=== PATIENT | male | born 1970 | race Caucasian/White ===

== ENCOUNTER 2018-04-22 18:00 | Inpatient (IN) | payer BC, OTHER ==
[~2018-04-22] VITALS: Ht 170.2 cm; Wt 117.5 kg
[~2018-04-22 18:00] MED LIST: BENA20TA4 PO; METO50TA6 PO; PRAV20TA2 PO
[2018-04-22] MEDS ORDERED: DEXAMETHASONE SOD PHOS 20 MG/5 ML VIAL. IV ONE (18:45)
[2018-04-22] MEDS ORDERED: IV NORMAL SALINE 1000ML BAG 1,000 ML IV ONE (18:45)
[2018-04-22 18:51] LABS: BILIRUBIN,URINE NEGATIVE (NEG); CLARITY,URINE CLEAR; COLOR,URINE YELLOW; NITRITE,URINE NEGATIVE (NEG); PROTEIN,URINE NEGATIVE (NEG-TRACE)
[2018-04-22 19:00] LABS: BARBITURATES NEG (NEG); BENZODIAZEPINES NEG (NEG); CANNABINOIDS NEG (NEG); COCAINE NEG (NEG); METHADONE NEG (NEG); OPIATES NEG (NEG); PHENCYCLIDINE NEG (NEG)
[2018-04-22 19:01] LABS: AMPHETAMINE/METHAMPHETAMINE NEG (NEG)
[2018-04-22 19:06] LABS: BACTERIA,URINE FEW /HPF (0-FEW); RBC,URINE OCC /HPF (0-2); SQUAMOUS EPITHELIAL CELL,UR OCC /LPF
--- NOTE | 2018-04-22 19:32 | RAD ---
CT head and cervical spine without contrast History: fall, hit head, left-sided neck pain, headache and confusion Technique: Noncontrast CT imaging was performed of the head and cervical spine. Multiplanar reconstruction images are submitted. Exposure: One or more of the following individualized dose reduction techniques were utilized for this examination: 1. Automated exposure control 2. Adjustment of the mA and/or kV according to patient size 3. Use of iterative reconstruction technique. Head CT Comparison: None Findings: No acute extra-axial or parenchymal hemorrhage is identified. There is no significant intra-axial mass effect, midline shift, or extra-axial fluid collection. The nazario-white differentiation of the major vascular territories is preserved. The ventricles, sulci, and cisterns are within normal limits in size and configuration. The mastoid air cells and the visualized paranasal sinuses are aerated. There is no significant focal calvarial abnormality. Impression: 1. No convincing acute intracranial abnormality is identified. Cervical spine CT Comparison: None Findings: No acute cervical spine fracture is identified. Vertebral body stature and AP alignment are within normal limits. Atlanto-axial distance is within normal limits. There is appropriate alignment of lateral masses of C1 relative to C2. Occipital condylar-C1 relationship is maintained. There is moderate degenerative disc disease C5-6. There is straightening of cervical spine, very mild reversal of the lordotic curvature centered near C4-5. There is spondylosis C4-5 and C5-6. Impression: 1. No acute cervical spine fracture is identified. 2. There is moderate degenerative disc disease C5-6. Electronically signed by: Henry Torre MD (04/22/2018 7:29 PM) [facility]
[2018-04-22 19:34] LABS: BASO % 1 % (0-3); EOS % 0 % (0-3); HEMATOCRIT 42.9 % (39.0-53.0); HEMOGLOBIN 14.3 g/dL (13.0-17.5); LYMPH # 1.7 x10^3/uL (1.0-4.8); LYMPH % 31 % (24-48); MEAN CORPUSCULAR HEMOGLOBIN 29 pg (25-35); MEAN CORPUSCULAR HGB CONC 33 g/dL (31-37); MEAN CORPUSCULAR VOLUME 88 fL (79-100); MONO # 0.3 x10^3/uL (0.0-1.1); MONO % 6 % (0-9); NEUT # 3.5 x10^3uL (1.8-7.7); NEUT % 63 % (31-73); PLATELET COUNT 234 x10^3/uL (140-400); RED BLOOD COUNT 4.89 x10^6/uL (4.30-5.70); RED CELL DISTRIBUTION WIDTH 13.2 % (11.5-14.5); WHITE BLOOD COUNT 5.5 x10^3/uL (4.0-11.0)
[2018-04-22 19:43] LABS: PROTHROMBIN TIME PATIENT 14.1 SEC (11.7-14.0)
--- NOTE | 2018-04-22 19:43 | EKG ---
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
[2018-04-22 19:46] LABS: CREATININE 1.2 mg/dL (0.7-1.3); GFR 64.1; POTASSIUM 4.3 mmol/L (3.5-5.1)
[2018-04-22 19:55] LABS: ALBUMIN 3.7 g/dL (3.4-5.0); ALBUMIN/GLOBULIN RATIO 0.9 (1.0-1.7); MAGNESIUM 2.4 mg/dL (1.8-2.4); TOTAL BILIRUBIN 0.7 mg/dL (0.2-1.0); TOTAL PROTEIN 7.8 g/dL (6.4-8.2)
[2018-04-22] MEDS ORDERED: MULTIVIT INFUSN,ADULT 4,VIT K 10 ML, THIAMINE INJ 100 MG, FOLIC ACID INJ 1 MG in IV NOR... IV ONE (20:00)
[2018-04-22] MEDS ORDERED: LACTULOSE 20 GM/30 ML SOLUTION. PO ONE (20:00)
[2018-04-22] MEDS ORDERED: cloNIDine HCL 0.1 MG TABLET PO PRN (21:15)
[2018-04-22] MEDS ORDERED: PROCHLORPERAZINE 10 MG/2 ML VIAL. IV PRN (21:15)
[2018-04-22] MEDS ORDERED: LACTULOSE 20 GM/30 ML SOLUTION. PO PRN (21:15)
[2018-04-22] MEDS ORDERED: LORazepam 1 MG TABLET PO PRN (21:15)
[2018-04-22] MEDS ORDERED: ONDANSETRON PF 4 MG/2 ML VIAL. IV PRN ×2 (21:15)
[2018-04-22] MEDS ORDERED: HALOPERIDOL LACTATE 5 MG/ML VIAL. IVP PRN (21:15)
[2018-04-22] MEDS ORDERED: IBUPROFEN 400 MG TABLET. PO PRN (21:15)
[2018-04-22] MEDS ORDERED: diphenhydrAMINE 50 MG/ML VIAL IVP PRN (21:15)
--- NOTE | 2018-04-22 21:16 | PDOC1 ---
History and Physical Date of Admission Date of Admission DATE: 04/22/18 TIME: 21:11 Identification/Chief Complaint Chief Complaint Confusion Source Source: Caregiver, Chart review, Patient History of Present Illness History of Present Illness Mr Phelps is a 48yo M w/ PMHx ETOH abuse, obesity who is brought in with his significant other for left facial pain and dysphagia per him and confusion per his significant other. He slipped and fell on the ice (earlier today?) and states he struck the back of his head and left side of his face. He notes that his left neck pain and difficulty swallowing preceded his fall. CT head/neck were negative for fracture. On further review he was confused and had elevated ethanol level of 350, ALT and AST both > 100, aPTT mildly elevated, CK mildly elevated and ammonia level of 60. Given lactulose. 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 He and his argue about whether he has 6-12 beers and whether this is daily or "weekly" On further review he notes he did get previously diagnosed with Afib, was told to stop drinking. He believes this was 3-4 years ago. He also states he has had a previously abnormal colonoscopy with greater than 7 polyps but failed to follow up with GI. Past Medical History Cardiovascular: AFIB Pulmonary: No pertinent hx GI: No pertinent hx Heme/Onc: No pertinent hx Hepatobiliary: No pertinent hx Psych: No pertinent hx Rheumatologic: No pertinent hx Infectious disease: No pertinent hx ENT: No pertinent hx Renal/: No pertinent hx Endocrine: No pertinent hx Dermatology: No pertinent hx Past Surgical History Past Surgical History: No pertinent history Family History Family History: Alcohol Abuse, High Cholestrol Social History Smoke: No ALCOHOL: heavy Drugs: None Current Medications Current Medications Current Medications Sodium Chloride 1,000 ml @ 1,000 mls/hr 1X ONCE IV Last administered on at 19:26; Start 04/22/18 at 18:45; Stop 04/22/18 at 19:44; Status DC Dexamethasone Sodium Phosphate (Decadron) 10 mg 1X ONCE IV Last administered on 04/22/18at 19:26; Start 04/22/18 at 18:45; Stop 04/22/18 at 18:46; Status DC Lactulose (Lactulose) 30 gm 1X ONCE PO Last administered on 04/22/18at 20:40; Start 04/22/18 at 20:00; Stop 04/22/18 at 20:01; Status DC Multivitamins 10 ml/Thiamine HCl 100 mg/Folic Acid 1 mg/Sodium Chloride 1,011.2 ml @ 1,000.088 mls/hr 1X ONCE IV Last administered on 04/22/18at 20:40; Start 04/22/18 at 20:00; Stop 04/22/18 at 21:00; Status DC Lorazepam (Ativan) 0.5 mg 1X ONCE IV ; Start 04/22/18 at 21:15; Stop 04/22/18 at 21:16 Active Scripts Active Reported Pravastatin Sodium 20 Mg Tablet 20 Mg PO Metoprolol Tartrate 50 Mg Tablet 50 Mg PO Benazepril Hcl 20 Mg Tablet 20 Mg PO Allergies Allergies: Coded Allergies: Penicillins (Verified Allergy, Intermediate, rash, 05/31/13) ROS General: No: Chills, Night Sweats, Fatigue, Malaise, Appetite, Other PSYCHOLOGICAL ROS: YES: Anxiety; No: Behavioral Disorder, Concentration difficultie, Decreased libido, Depression, Disorientation, Hallucinations, Hostility, Irritablity, Memory difficulties, Mood Swings, Obsessive thoughts, Physical abuse, Sexual abuse, Sleep disturbances, Suicidal ideation, Other Eyes: Yes Blurry vision; No Decreased vision, No Double vision, No Dry eyes, No Excessive tearing, No Eye Pain, No Itchy Eyes, No Loss of vision, No Photophobia, No Scotomata, No Uses contacts, No Uses glasses, No Other HEENT: YES: Heacaches, Sore Throat, Other (left parotid swelling, left neck swelling); No: Visual Changes, Hearing change, Nasal congestion, Nasal discharge, Oral lesions, Sinus pain, Epistaxis, Sneezing, Snoring, Tinnitus, Vertigo, Vocal changes ALLERGY AND IMMUNOLOGY: No: Hives, Insect Bite Sensitivity, Itchy/Watery Eyes, Nasal Congestion, Post Nasal Drip, Seasonal Allergies, Other Hematological and Lymphatic: No: Bleeding Problems, Blood Clots, Blood Transfusions, Brusing, Night Sweats, Pallor, Swollen Lymph Nodes, Other ENDOCRINE: No: Breast Changes, Galactorrhea, Hair Pattern Changes, Hot Flashes , Malaise/lethargy, Mood Swings, Palpitations, Polydipsia/polyuria, Skin Changes , Temperature Intolerance, Unexpected Weight Changes, Other Breast: No New/Changing Breast Lumps, No Nipple changes, No Nipple discharge, No Other Respiratory: No: Cough, Hemoptysis, Orthopnea, Pleuritic Pain, Shortness of breath, SOB with excertion, Sputum Changes, Stridor, Tachypnea, Wheezing, Other Cardiovascular: No Chest Pain, No Palpitations, No Orthopnea, No Paroxysmal Noc. Dyspnea, No Edema, No Lt Headedness, No Other Gastrointestinal: Yes Abdominal Pain; No Nausea, No Vomiting, No Diarrhea, No Constipation, No Melena, No Hematochezia, No Other Genitourinary: No Dysuria, No Frequency, No Incontinence, No Hematuria, No Retention, No Discharge, No Urgency, No Pain, No Flank Pain, No Other, No , No , No , No , No , No , No Musculoskeletal: Yes Gait Disturbance; No Joint Pain, No Joint Stiffness, No Joint Swelling, No Muscle Pain, No Muscular Weakness, No Pain In:, No Swelling In:, No Other Neurological: No Behavorial Changes, No Bowel/Bladder ControlChng, No Confusion , No Dizziness, No Gait Disturbance, No Headaches, No Impaired Coord/balance, No Memory Loss, No Numbness/Tingling, No Seizures, No Speech Problems, No Tremors, No Visual Changes, No Weakness, No Other Skin: No Dry Skin, No Eczema, No Hair Changes, No Lumps, No Mole Changes, No Mottling, No Nail Changes, No Pruritus, No Rash, No Skin Lesion Changes, No Other, No Acne Physical Exam General: Alert, Cooperative, No acute distress HEENT: Atraumatic, PERRLA, EOMI, Mucous membr. moist/pink, Other (horizontal nystagmus bilaterally) Lungs: Clear to auscultation, Normal air movement Heart: S1S2, RRR, no gallops, no murmurs Abdomen: Normal bowel sounds, Soft, No masses, Other (Mild RUQ tenderness, hepatomegaly) Rectal Exam: not examined Extremities: No clubbing, No cyanosis, No edema, Normal pulses, No tenderness/ swelling Skin: No rashes, No breakdown, No significant lesion Neuro: Normal speech, Strength at 5/5 X4 ext, Normal tone, Sensation intact, Cranial nerves 3-12 NL, Reflexes 2+ Psych/Mental Status: Mental status NL, Mood NL Vitals Vitals Vital Signs Date Time Temp Pulse Resp B/P (MAP) Pulse Ox O2 Delivery O2 Flow Rate FiO2 04/22/18 18:52 98.1 97 20 138/75 (96) 96 Room Air 98.1 Labs Labs Laboratory Tests Test 04/22/18 18:25 04/22/18 19:28 Urine Color Yellow Urine Clarity Clear Urine pH 6.0 Urine Specific [place] 1.015 Urine Protein Negative mg/dL (NEG-TRACE) Urine Glucose (UA) Negative mg/dL (NEG) Urine Ketones (Stick) Negative mg/dL (NEG) Urine Blood Trace (NEG) Urine Nitrite Negative (NEG) Urine Bilirubin Negative (NEG) Urine Urobilinogen Dipstick 1.0 mg/dL (0.2 mg/dL) Urine Leukocyte Esterase Negative (NEG) Urine RBC Occ /HPF (0-2) Urine WBC 1-4 /HPF (0-4) Urine Squamous Epithelial Cells Occ /LPF Urine Bacteria Few /HPF (0-FEW) Urine Mucus Slight /LPF Urine Opiates Screen Neg (NEG) Urine Methadone Screen Neg (NEG) Urine Barbiturates Neg (NEG) Urine Phencyclidine Screen Neg (NEG) Urine Amphetamine/Methamphetamine Neg (NEG) Urine Benzodiazepines Screen Neg (NEG) Urine Cocaine Screen Neg (NEG) Urine Cannabinoids Screen Neg (NEG) Urine Ethyl Alcohol Pos (NEG) White Blood Count 5.5 x10^3/uL (4.0-11.0) Red Blood Count 4.89 x10^6/uL (4.30-5.70) Hemoglobin 14.3 g/dL (13.0-17.5) Hematocrit 42.9 % (39.0-53.0) Mean Corpuscular Volume 88 fL (79-100) Mean Corpuscular Hemoglobin 29 pg (25-35) Mean Corpuscular Hemoglobin Concent 33 g/dL (31-37) Red Cell Distribution Width 13.2 % (11.5-14.5) Platelet Count 234 x10^3/uL (140-400) Neutrophils (%) (Auto) 63 % (31-73) Lymphocytes (%) (Auto) 31 % (24-48) Monocytes (%) (Auto) 6 % (0-9) Eosinophils (%) (Auto) 0 % (0-3) Basophils (%) (Auto) 1 % (0-3) Neutrophils # (Auto) 3.5 x10^3uL (1.8-7.7) Lymphocytes # (Auto) 1.7 x10^3/uL (1.0-4.8) Monocytes # (Auto) 0.3 x10^3/uL (0.0-1.1) Eosinophils # (Auto) 0.0 x10^3/uL (0.0-0.7) Basophils # (Auto) 0.0 x10^3/uL (0.0-0.2) Prothrombin Time 14.1 SEC (11.7-14.0) Prothromb Time International Ratio 1.1 (0.8-1.1) Activated Partial Thromboplast Time 26 SEC (24-38) Sodium Level 144 mmol/L (136-145) Potassium Level 4.3 mmol/L (3.5-5.1) Chloride Level 105 mmol/L (98-107) Carbon Dioxide Level 28 mmol/L (21-32) Anion Gap 11 (6-14) Blood Urea Nitrogen 22 mg/dL (8-26) Creatinine 1.2 mg/dL (0.7-1.3) Estimated GFR (Cockcroft-Gault) 64.1 BUN/Creatinine Ratio 18 (6-20) Glucose Level 152 mg/dL (70-99) Lactic Acid Level 1.4 mmol/L (0.4-2.0) Calcium Level 9.0 mg/dL (8.5-10.1) Magnesium Level 2.4 mg/dL (1.8-2.4) Total Bilirubin 0.7 mg/dL (0.2-1.0) Aspartate Amino Transf (AST/SGOT) 102 U/L (15-37) Alanine Aminotransferase (ALT/SGPT) 124 U/L (16-63) Alkaline Phosphatase 88 U/L (46-116) Ammonia 60 mcmol/L (11-34) Creatine Kinase 384 U/L (39-308) Creatine Kinase MB (Mass) 1.7 ng/mL (0.0-3.6) Creatine Kinase MB Relative Index 0.4 % (0-4) Troponin I Quantitative < 0.017 ng/mL (0.000-0.055) Total Protein 7.8 g/dL (6.4-8.2) Albumin 3.7 g/dL (3.4-5.0) Albumin/Globulin Ratio 0.9 (1.0-1.7) Ethyl Alcohol Level 350 mg/dL (0-10) Laboratory Tests Test 04/22/18 18:25 04/22/18 19:28 Urine Color Yellow Urine Clarity Clear Urine pH 6.0 Urine Specific [place] 1.015 Urine Protein Negative mg/dL (NEG-TRACE) Urine Glucose (UA) Negative mg/dL (NEG) Urine Ketones (Stick) Negative mg/dL (NEG) Urine Blood Trace (NEG) Urine Nitrite Negative (NEG) Urine Bilirubin Negative (NEG) Urine Urobilinogen Dipstick 1.0 mg/dL (0.2 mg/dL) Urine Leukocyte Esterase Negative (NEG) Urine RBC Occ /HPF (0-2) Urine WBC 1-4 /HPF (0-4) Urine Squamous Epithelial Cells Occ /LPF Urine Bacteria Few /HPF (0-FEW) Urine Mucus Slight /LPF Urine Opiates Screen Neg (NEG) Urine Methadone Screen Neg (NEG) Urine Barbiturates Neg (NEG) Urine Phencyclidine Screen Neg (NEG) Urine Amphetamine/Methamphetamine Neg (NEG) Urine Benzodiazepines Screen Neg (NEG) Urine Cocaine Screen Neg (NEG) Urine Cannabinoids Screen Neg (NEG) Urine Ethyl Alcohol Pos (NEG) White Blood Count 5.5 x10^3/uL (4.0-11.0) Red Blood Count 4.89 x10^6/uL (4.30-5.70) Hemoglobin 14.3 g/dL (13.0-17.5) Hematocrit 42.9 % (39.0-53.0) Mean Corpuscular Volume 88 fL (79-100) Mean Corpuscular Hemoglobin 29 pg (25-35) Mean Corpuscular Hemoglobin Concent 33 g/dL (31-37) Red Cell Distribution Width 13.2 % (11.5-14.5) Platelet Count 234 x10^3/uL (140-400) Neutrophils (%) (Auto) 63 % (31-73) Lymphocytes (%) (Auto) 31 % (24-48) Monocytes (%) (Auto) 6 % (0-9) Eosinophils (%) (Auto) 0 % (0-3) Basophils (%) (Auto) 1 % (0-3) Neutrophils # (Auto) 3.5 x10^3uL (1.8-7.7) Lymphocytes # (Auto) 1.7 x10^3/uL (1.0-4.8) Monocytes # (Auto) 0.3 x10^3/uL (0.0-1.1) Eosinophils # (Auto) 0.0 x10^3/uL (0.0-0.7) Basophils # (Auto) 0.0 x10^3/uL (0.0-0.2) Prothrombin Time 14.1 SEC (11.7-14.0) Prothromb Time International Ratio 1.1 (0.8-1.1) Activated Partial Thromboplast Time 26 SEC (24-38) Sodium Level 144 mmol/L (136-145) Potassium Level 4.3 mmol/L (3.5-5.1) Chloride Level 105 mmol/L (98-107) Carbon Dioxide Level 28 mmol/L (21-32) Anion Gap 11 (6-14) Blood Urea Nitrogen 22 mg/dL (8-26) Creatinine 1.2 mg/dL (0.7-1.3) Estimated GFR (Cockcroft-Gault) 64.1 BUN/Creatinine Ratio 18 (6-20) Glucose Level 152 mg/dL (70-99) Lactic Acid Level 1.4 mmol/L (0.4-2.0) Calcium Level 9.0 mg/dL (8.5-10.1) Magnesium Level 2.4 mg/dL (1.8-2.4) Total Bilirubin 0.7 mg/dL (0.2-1.0) Aspartate Amino Transf (AST/SGOT) 102 U/L (15-37) Alanine Aminotransferase (ALT/SGPT) 124 U/L (16-63) Alkaline Phosphatase 88 U/L (46-116) Ammonia 60 mcmol/L (11-34) Creatine Kinase 384 U/L (39-308) Creatine Kinase MB (Mass) 1.7 ng/mL (0.0-3.6) Creatine Kinase MB Relative Index 0.4 % (0-4) Troponin I Quantitative < 0.017 ng/mL (0.000-0.055) Total Protein 7.8 g/dL (6.4-8.2) Albumin 3.7 g/dL (3.4-5.0) Albumin/Globulin Ratio 0.9 (1.0-1.7) Ethyl Alcohol Level 350 mg/dL (0-10) Images Images Abd US - 1. There is hepatic steatosis and hepatomegaly. 2. There is distention of urinary bladder, postvoid residual estimated at [address] head /neck - 1. No convincing acute intracranial abnormality is identified. Cervical spine CT Impression: 1. No acute cervical spine fracture is identified. 2. There is moderate degenerative disc disease C5-6. VTE Prophylaxis Ordered VTE Prophylaxis Devices: Yes VTE Pharmacological Prophylaxi: No Assessment/Plan Assessment/Plan A/P: Fall - trauma CT head negative. Likely was 2/2 intoxication. He does have h/o afib, sinus on the monitor. Will monitor him on tele overnight ETOH abuse - he is intoxicated currently, place on [facility], will admit to tele. Banana bag daily Dysphagia - states solid food sticks, likely needs EGD with what I suspect to be varices from likely liver disease. Will consult GI Transaminitis - AST is not 2:1 to ALT, but with his ammonia level up and intoxication with alcohol, PTT up this is likely alcoholic hepatitis with fatty liver. US liver Encephalopathy - likely ETOH intoxication complicated by hepatic encephalopathy. Will start lactulose. Consult GI. H/o afib - likely 2/2 ETOH, will place on tele Left parotid pain - may need to see ENT outpatient. Nothing obvious on his CT head/neck, but there was no contrast Obesity - counseled on ETOH cessation and weight loss simultaneously Prior abnormal colonoscopy - will consult GI FEN - General diet. NPO after midnight PPX - SCDS FULL CODE Inpatient for encephalopathy multifactorial ANTWONFEModesta,YELENA Peoples MD Apr 22, 2018 21:16
--- NOTE | 2018-04-22 23:00 | RAD ---
ABDOMEN COMPLETE History: Right upper quadrant pain, elevated liver function tests Comparison: None. Findings: Multiple sonographic images of the abdomen are submitted. There is coarsening of the hepatic echotexture. There is likely focal fatty sparing near the gallbladder fossa. Right lobe of the liver measured 21.5 cm longitudinal. Pancreas is not well-visualized due to bowel gas. Right kidney measured 11.8 x 6.3 x 6.6 cm, no hydronephrosis. Left kidney measured 11.9 x 5.7 x 6.4 cm, no hydronephrosis. Spleen measured 11.1 cm. Gallbladder is present without intraluminal abnormality, wall thickening, pericholecystic fluid. Abdominal aorta and inferior vena cava were also not well visualized due to bowel gas. Prevoid urinary bladder volume was 945 cc, postvoid volume 254 cc. Impression: 1. There is hepatic steatosis and hepatomegaly. 2. There is distention of urinary bladder, postvoid residual estimated at 245 cc. Electronically signed by: Henry Torre MD (04/22/2018 10:58 PM) [facility]
[2018-04-22 23:11] VITALS: BP 145/82
--- NOTE | 2018-04-22 23:31 | RAD ---
CHEST PA LATERAL History: Chest pain, cough Comparison: May 31, 2013 Findings: 2 views of the chest are submitted. There is bibasilar airspace opacity, also likely in the left suprahilar region. Pericardial cardiac silhouette appears more enlarged than previously. There is no dependent pleural fluid or pneumothorax. Impression: 1. There is bibasilar and left suprahilar airspace opacity which may be due to infectious infiltrates or edema. Pericardial cardiac silhouette is enlarged. Electronically signed by: Henry Torre MD (04/22/2018 11:28 PM) [facility]
[2018-04-23] MEDS ORDERED: LIDO:MAALOX 1:1 20 ML SINGLE DOSE. SWSW ONE (00:45)
[2018-04-23] MEDS: PANTOPRAZOLE IV PUSH 40 MG VIAL. IVP SCH ×2 (01:12→09:21)
[2018-04-23] MEDS ORDERED: CLOT15CR3 TP (02:39)
[2018-04-23] MEDS ORDERED: LOSA100T14 PO (02:39)
[2018-04-23] MEDS ORDERED: AMLO5TAB10 PO (02:39)
[2018-04-23] MEDS ORDERED: ALLO100T PO (02:39)
[2018-04-23] MEDS ORDERED: PRED1TAB3 PO (02:39)
[2018-04-23] MEDS ORDERED: CRESTOR20 MG PO (02:39)
[2018-04-23 03:15] VITALS: BP 115/69
[2018-04-23 04:18] LABS: BASO % 0 % (0-3); EOS % 0 % (0-3); HEMATOCRIT 37.7 % (39.0-53.0); HEMOGLOBIN 12.6 g/dL (13.0-17.5); LYMPH # 0.8 x10^3/uL (1.0-4.8); LYMPH % 21 % (24-48); MEAN CORPUSCULAR HEMOGLOBIN 30 pg (25-35); MEAN CORPUSCULAR HGB CONC 34 g/dL (31-37); MEAN CORPUSCULAR VOLUME 88 fL (79-100); MONO % 1 % (0-9); NEUT # 2.9 x10^3uL (1.8-7.7); NEUT % 78 % (31-73); PLATELET COUNT 205 x10^3/uL (140-400); RED BLOOD COUNT 4.27 x10^6/uL (4.30-5.70); RED CELL DISTRIBUTION WIDTH 13.3 % (11.5-14.5); WHITE BLOOD COUNT 3.7 x10^3/uL (4.0-11.0)
--- NOTE | 2018-04-23 05:32 | PHYS DOC ---
Past Medical History Past Medical History: High Cholesterol, Hypertension, Other Additional Past Medical Histor: GOUT Past Surgical History: No Surgical History, Appendectomy Additional Past Surgical Histo: shoulder pain Alcohol Use: Occasionally Drug Use: None Adult General Chief Complaint Chief Complaint: MECHANICAL FALL HPI HPI 48 y/o male presents with history of confusion, headache, and left sided neck pain which which patient reports started after mechanical slip and fall 04/21/18 [place] patient[place]. Reports struck the back of his head. Denies LOC. Denies nausea or vomiting. Denies laceration. Patient reports he only drank 2 beers today. Reports he has also been having some chest discomfort for the last week. Review of Systems Review of Systems Constitutional: Denies fever or chills [] Eyes: Denies change in visual acuity, redness, or eye pain [] HENT: Denies nasal congestion or epistaxis Respiratory: Denies cough or shortness of breath [] Cardiovascular: Reports chest pain and palpitations GI: Denies abdominal pain, nausea, vomiting, or diarrhea [] : Denies dysuria or hematuria [] Musculoskeletal: Reports left neck pain Integument: Denies laceration Neurologic: Reports headache and confusion Complete systems were reviewed and found to be within normal limits, except as documented in this note. Current Medications Current Medications Current Medications Medications (Trade) Dose Ordered Sig/Abisai Start Time Stop Time Status Last Admin Dose Admin Acetaminophen (Tylenol) 650 mg PRN Q6HRS PRN 04/22/18 21:15 04/24/18 13:55 DC 04/23/18 18:11 650 MG Clonidine HCl (Catapres) 0.1 mg PRN Q1HR PRN 04/22/18 21:15 04/24/18 13:55 DC Dexamethasone Sodium Phosphate (Decadron) 10 mg 1X ONCE 04/22/18 18:45 04/22/18 18:46 DC 04/22/18 19:26 10 MG Diphenhydramine HCl (Benadryl) 25 mg PRN Q15MIN PRN 04/22/18 21:15 04/24/18 13:55 DC Haloperidol Lactate (Haldol Inj) 5 mg PRN Q4HRS PRN 04/22/18 21:15 04/24/18 13:55 DC Ibuprofen (Motrin) 400 mg PRN Q6HRS PRN 04/22/18 21:15 04/24/18 13:55 DC 04/23/18 09:34 400 MG Ketorolac Tromethamine (Toradol 15mg Vial) 15 mg PRN Q6HRS PRN 04/22/18 21:15 04/24/18 13:55 DC 04/24/18 04:53 15 MG Lactulose (Lactulose) 20 gm PRN Q12HR PRN 04/22/18 21:15 04/23/18 10:20 DC Lorazepam (Ativan) 2 mg PRN Q1HR PRN 04/22/18 21:15 04/24/18 13:55 DC 04/24/18 04:53 2 MG Multivitamins 10 ml/Thiamine HCl 100 mg/Folic Acid 1 mg/Sodium Chloride 1,011.2 ml @ 1,000.088 mls/hr 1X ONCE 04/22/18 20:00 04/22/18 21:00 DC 04/22/18 20:40 1,000.088 MLS/HR Ondansetron HCl (Zofran) 4 mg PRN Q6HRS PRN 04/22/18 21:15 04/24/18 13:55 DC Prochlorperazine Edisylate (Compazine) 10 mg PRN Q6HRS PRN 04/22/18 21:15 04/24/18 13:55 DC Ringer's Solution 1,000 ml @ 100 mls/hr Q10H 04/22/18 21:12 04/24/18 13:55 DC 04/23/18 09:20 100 MLS/HR Sodium Chloride 1,000 ml @ 1,000 mls/hr 1X ONCE 04/22/18 18:45 04/22/18 19:44 DC 04/22/18 19:26 1,000 MLS/HR Allergies Allergies Allergies Coded Allergies Type Severity Reaction Last Updated Verified Penicillins Allergy Intermediate rash 05/31/13 Yes Physical Exam Physical Exam Constitutional: Well developed, well nourished, no acute distress, non-toxic appearance. [] HENT: Normocephalic, atraumatic, bilateral TMs normal, oropharynx moist, nose normal, parotid enlargement Eyes: PERRL, EOMI, conjunctiva normal, horizontal nystagmus Neck: Normal range of motion, no midline tenderness, supple, left paraspinal tenderness Cardiovascular: Heart rate regular rhythm Lungs & Thorax: Bilateral breath sounds clear to auscultation [] Abdomen: Soft, no tenderness, pelvis stable and nontender Skin: Warm, dry, no erythema, no rash. [] Back: No midline tenderness, no CVA tenderness. [] Extremities: No tenderness, ROM intact, no edema. [] Neurologic: Alert and oriented X 3, normal motor function, normal sensory function, no focal deficits noted. [] Current Patient Data Vital Signs Vital Signs Date Time Temp Pulse Resp B/P (MAP) Pulse Ox O2 Delivery O2 Flow Rate FiO2 04/22/18 18:52 98.1 97 20 138/75 (96) 96 Room Air 98.1 Lab Values Laboratory Tests Test 04/22/18 18:25 04/22/18 19:28 Urine Color Yellow Urine Clarity Clear Urine pH 6.0 Urine Specific [place] 1.015 Urine Protein Negative mg/dL (NEG-TRACE) Urine Glucose (UA) Negative mg/dL (NEG) Urine Ketones (Stick) Negative mg/dL (NEG) Urine Blood Trace (NEG) Urine Nitrite Negative (NEG) Urine Bilirubin Negative (NEG) Urine Urobilinogen Dipstick 1.0 mg/dL (0.2 mg/dL) Urine Leukocyte Esterase Negative (NEG) Urine RBC Occ /HPF (0-2) Urine WBC 1-4 /HPF (0-4) Urine Squamous Epithelial Cells Occ /LPF Urine Bacteria Few /HPF (0-FEW) Urine Mucus Slight /LPF Urine Opiates Screen Neg (NEG) Urine Methadone Screen Neg (NEG) Urine Barbiturates Neg (NEG) Urine Phencyclidine Screen Neg (NEG) Urine Amphetamine/Methamphetamine Neg (NEG) Urine Benzodiazepines Screen Neg (NEG) Urine Cocaine Screen Neg (NEG) Urine Cannabinoids Screen Neg (NEG) Urine Ethyl Alcohol Pos (NEG) White Blood Count 5.5 x10^3/uL (4.0-11.0) Red Blood Count 4.89 x10^6/uL (4.30-5.70) Hemoglobin 14.3 g/dL (13.0-17.5) Hematocrit 42.9 % (39.0-53.0) Mean Corpuscular Volume 88 fL (79-100) Mean Corpuscular Hemoglobin 29 pg (25-35) Mean Corpuscular Hemoglobin Concent 33 g/dL (31-37) Red Cell Distribution Width 13.2 % (11.5-14.5) Platelet Count 234 x10^3/uL (140-400) Neutrophils (%) (Auto) 63 % (31-73) Lymphocytes (%) (Auto) 31 % (24-48) Monocytes (%) (Auto) 6 % (0-9) Eosinophils (%) (Auto) 0 % (0-3) Basophils (%) (Auto) 1 % (0-3) Neutrophils # (Auto) 3.5 x10^3uL (1.8-7.7) Lymphocytes # (Auto) 1.7 x10^3/uL (1.0-4.8) Monocytes # (Auto) 0.3 x10^3/uL (0.0-1.1) Eosinophils # (Auto) 0.0 x10^3/uL (0.0-0.7) Basophils # (Auto) 0.0 x10^3/uL (0.0-0.2) Prothrombin Time 14.1 SEC (11.7-14.0) H Prothrombin Time INR 1.1 (0.8-1.1) PTT 26 SEC (24-38) Sodium Level 144 mmol/L (136-145) Potassium Level 4.3 mmol/L (3.5-5.1) Chloride Level 105 mmol/L (98-107) Carbon Dioxide Level 28 mmol/L (21-32) Anion Gap 11 (6-14) Blood Urea Nitrogen 22 mg/dL (8-26) Creatinine 1.2 mg/dL (0.7-1.3) Estimated GFR (Cockcroft-Gault) 64.1 BUN/Creatinine Ratio 18 (6-20) Glucose Level 152 mg/dL (70-99) H Lactic Acid Level 1.4 mmol/L (0.4-2.0) Calcium Level 9.0 mg/dL (8.5-10.1) Magnesium Level 2.4 mg/dL (1.8-2.4) Total Bilirubin 0.7 mg/dL (0.2-1.0) Aspartate Amino Transferase (AST) 102 U/L (15-37) H Alanine Aminotransferase (ALT) 124 U/L (16-63) H Alkaline Phosphatase 88 U/L (46-116) Ammonia 60 mcmol/L (11-34) H Creatine Kinase 384 U/L (39-308) H Creatine Kinase MB (Mass) 1.7 ng/mL (0.0-3.6) Creatine Kinase MB Relative Index 0.4 % (0-4) Troponin I Quantitative < 0.017 ng/mL (0.000-0.055) Total Protein 7.8 g/dL (6.4-8.2) Albumin 3.7 g/dL (3.4-5.0) Albumin/Globulin Ratio 0.9 (1.0-1.7) L Ethyl Alcohol Level 350 mg/dL (0-10) H Laboratory Tests 04/22/18 19:28 Laboratory Tests 04/22/18 19:28 EKG EKG @1815 NSR at 96bpm, NO ST elevation, QRS 80ms, QT/QTc 320/405ms Radiology/Procedures Radiology/Procedures PROCEDURE: CHEST PA & LATERAL CHEST PA LATERAL History: Chest pain, cough Comparison: May 31, 2013 Findings: 2 views of the chest are submitted. There is bibasilar airspace opacity, also likely in the left suprahilar region. Pericardial cardiac silhouette appears more enlarged than previously. There is no dependent pleural fluid or pneumothorax. Impression: 1. There is bibasilar and left suprahilar airspace opacity which may be due to infectious infiltrates or edema. Pericardial cardiac silhouette is enlarged. Electronically signed by: Henry Torre MD (04/22/2018 11:28 PM) [facility] PROCEDURE: CT HEAD AND CERVICAL SPINE WO CT head and cervical spine without contrast History: fall, hit head, left-sided neck pain, headache and confusion Technique: Noncontrast CT imaging was performed of the head and cervical spine. Multiplanar reconstruction images are submitted. Exposure: One or more of the following individualized dose reduction techniques were utilized for this examination: 1. Automated exposure control 2. Adjustment of the mA and/or kV according to patient size 3. Use of iterative reconstruction technique. Head CT Comparison: None Findings: No acute extra-axial or parenchymal hemorrhage is identified. There is no significant intra-axial mass effect, midline shift, or extra-axial fluid collection. The nazario-white differentiation of the major vascular territories is preserved. The ventricles, sulci, and cisterns are within normal limits in size and configuration. The mastoid air cells and the visualized paranasal sinuses are aerated. There is no significant focal calvarial abnormality. Impression: 1. No convincing acute intracranial abnormality is identified. Cervical spine CT Comparison: None Findings: No acute cervical spine fracture is identified. Vertebral body stature and AP alignment are within normal limits. [place]-axial distance is within normal limits. There is appropriate alignment of lateral masses of C1 relative to C2. Occipital condylar-C1 relationship is maintained. There is moderate degenerative disc disease C5-6. There is straightening of cervical spine, very mild reversal of the lordotic curvature centered near C4-5. There is spondylosis C4-5 and C5-6. Impression: 1. No acute cervical spine fracture is identified. 2. There is moderate degenerative disc disease C5-6. Electronically signed by: Henry Torre MD (04/22/2018 7:29 PM) [facility] Course & Med Decision Making Course & Med Decision Making Pertinent Labs and Imaging studies reviewed. (See chart for details) Patient presents with history of confusion and "not acting right" per family. Patient reports recent fall after slipping on ice in his backyard. Physial exam concerning for ETOH abuse. Patient very defensive when asked about ETOH consumption. Horizontal nystagmus noted. Labs obtained and posted to chart. ETOH 350. Ammonia also elevated. EKG and CXR stable. Initial troponin WNL. CT head /cervical spine without acute process. Lactulose provided. Patient requiring admission for further evaluation and treatment. Discussed with Dr. Serna (hospitalist), who is in agreement with admission. Discussed findings and plan with patient and family, who acknowledge understanding and agreement. Dragon Disclaimer Dragon Disclaimer This electronic medical record was generated, in whole or in part, using a voice recognition dictation system. Departure Departure Impression: Primary Impression: Acute encephalopathy Additional Impression: Alcohol abuse Disposition: ADMITTED INPATIENT Admitting Physician: Other (RIFFEL) Condition: STABLE Referrals: VERNON ALMANZAR (PCP) Scripts Acetaminophen (TYLENOL) 325 Mg Tablet 1-2 TAB PO QID for headache for 5 Days, #60 TAB 2 Refills Prov: JOE PEREZ MD 04/24/18 Problem Qualifiers SAKSHI MAHONEY DO Apr 23, 2018 05:32
[2018-04-23 05:34] LABS: ALBUMIN 3.1 g/dL (3.4-5.0); ALBUMIN/GLOBULIN RATIO 0.9 (1.0-1.7); CALCIUM 8.1 mg/dL (8.5-10.1); CREATININE 1.1 mg/dL (0.7-1.3); GFR 70.9; TOTAL BILIRUBIN 0.6 mg/dL (0.2-1.0); TOTAL PROTEIN 6.7 g/dL (6.4-8.2)
[2018-04-23 07:00] VITALS: BP 143/85
[2018-04-23] MEDS: ACETAMINOPHEN 325 MG TABLET. PO PRN ×2 (07:30→18:11)
--- NOTE | 2018-04-23 09:16 | PDOC2 ---
GI CONSULT Reason For Consult: Dysphagia, prior abnormal C-scope, suspect cirrhosis HPI: HPI: 48 y/o male admitted through ER. Says he fell down an incline on Friday night while going to feed the chickens, landed on left head/neck, and was awakened by his dog licking his face. Labs noted +alcohol (350), WBC 3.7, Hgb 12.6, AST 117, ALT 119, ammonia 60. US shows hepatic steatosis and hepatomegaly. GI-bhatt, has chronic solid food dysphagia. [place] frequently in sternoclavicular notch, sometimes has to cough up food. Can't tell me how long this has been bothersome. Also has some vaguely described chronic left-sided neck burning that is constant but also bothersome with swallowing. Radiates into left face. Occasional heartburn, takes Tums PRN. No n/v. Thinks he had a nosebleed yesterday and spit out some blood. Also reports chronic vague RUQ pain. No diarrhea, constipation, melena, or hematochezia. No weight loss or change in appetite. EGD 04/29/11 for dysphagia, RUQ pain, and belching performed by Dr. Robertson: minimal gastritis. Empiric esophageal dilation to 60Fr. Random esophageal showed mild acute inflammation (more c/w reflux than EoE), prepyloric biopsies negative for H. pylori, and random duodenal biopsies were without pathologic abnormality. Colonoscopy 04/29/11 for CRC screening, FH of CRC, and RLQ pain showed 4mm adenomatous polyp at 25cm and Grade 1 internal hemorrhoids. Additional colonoscopies in 2009 and 2004 unrevealing expect long, redundant colon and hemorrhoids. Denies GB, liver, pancreas, or PUD history. Takes 12 ibuprofen daily for neck and head pain. Also mentions Naproxen and prednisone but these details are unclear. PMH: PMH: HTN, HLD, A Fib, ?COPD ("I have the lungs of a 68 y/o man"), gout, GERD, colon polyp, hemorrhoids, DVT appendectomy, vasectomy, bilateral shoulder surgeries, LUE tendon repair, varicose vein surgery FH: Family History: Cancer (colon - aunt, sister) Social History: Smoke: No ALCOHOL: heavy ("2-3 beers, maybe a quart, maybe a tall boy") Drugs: None ROS: GEN: Denies fevers, chills, sweats HEENT: nosebleed CV: Denies chest pain RESP: Denies shortness of air, cough GI: Per HPI : Denies hematuria, dysuria ENDO: Denies weight changes NEURO: Denies confusion, dizziness MSK: Neck and head pain SKIN: Denies jaundice, pruritus Vitals: Vitals: Vital Signs Date Time Temp Pulse Resp B/P (MAP) Pulse Ox O2 Delivery O2 Flow Rate FiO2 04/23/18 07:00 97.4 91 18 143/85 (104) 95 Room Air 97.4 Labs: Labs: Laboratory Tests Test 04/22/18 18:25 04/22/18 19:28 04/23/18 03:00 Urine Color Yellow Urine Clarity Clear Urine pH 6.0 Urine Specific [place] 1.015 Urine Protein Negative mg/dL (NEG-TRACE) Urine Glucose (UA) Negative mg/dL (NEG) Urine Ketones (Stick) Negative mg/dL (NEG) Urine Blood Trace (NEG) Urine Nitrite Negative (NEG) Urine Bilirubin Negative (NEG) Urine Urobilinogen Dipstick 1.0 mg/dL (0.2 mg/dL) Urine Leukocyte Esterase Negative (NEG) Urine RBC Occ /HPF (0-2) Urine WBC 1-4 /HPF (0-4) Urine Squamous Epithelial Cells Occ /LPF Urine Bacteria Few /HPF (0-FEW) Urine Mucus Slight /LPF Urine Opiates Screen Neg (NEG) Urine Methadone Screen Neg (NEG) Urine Barbiturates Neg (NEG) Urine Phencyclidine Screen Neg (NEG) Urine Amphetamine/Methamphetamine Neg (NEG) Urine Benzodiazepines Screen Neg (NEG) Urine Cocaine Screen Neg (NEG) Urine Cannabinoids Screen Neg (NEG) Urine Ethyl Alcohol Pos (NEG) White Blood Count 5.5 x10^3/uL (4.0-11.0) 3.7 x10^3/uL (4.0-11.0) Red Blood Count 4.89 x10^6/uL (4.30-5.70) 4.27 x10^6/uL (4.30-5.70) Hemoglobin 14.3 g/dL (13.0-17.5) 12.6 g/dL (13.0-17.5) Hematocrit 42.9 % (39.0-53.0) 37.7 % (39.0-53.0) Mean Corpuscular Volume 88 fL (79-100) 88 fL (79-100) Mean Corpuscular Hemoglobin 29 pg (25-35) 30 pg (25-35) Mean Corpuscular Hemoglobin Concent 33 g/dL (31-37) 34 g/dL (31-37) Red Cell Distribution Width 13.2 % (11.5-14.5) 13.3 % (11.5-14.5) Platelet Count 234 x10^3/uL (140-400) 205 x10^3/uL (140-400) Neutrophils (%) (Auto) 63 % (31-73) 78 % (31-73) Lymphocytes (%) (Auto) 31 % (24-48) 21 % (24-48) Monocytes (%) (Auto) 6 % (0-9) 1 % (0-9) Eosinophils (%) (Auto) 0 % (0-3) 0 % (0-3) Basophils (%) (Auto) 1 % (0-3) 0 % (0-3) Neutrophils # (Auto) 3.5 x10^3uL (1.8-7.7) 2.9 x10^3uL (1.8-7.7) Lymphocytes # (Auto) 1.7 x10^3/uL (1.0-4.8) 0.8 x10^3/uL (1.0-4.8) Monocytes # (Auto) 0.3 x10^3/uL (0.0-1.1) 0.0 x10^3/uL (0.0-1.1) Eosinophils # (Auto) 0.0 x10^3/uL (0.0-0.7) 0.0 x10^3/uL (0.0-0.7) Basophils # (Auto) 0.0 x10^3/uL (0.0-0.2) 0.0 x10^3/uL (0.0-0.2) Prothrombin Time 14.1 SEC (11.7-14.0) Prothromb Time International Ratio 1.1 (0.8-1.1) Activated Partial Thromboplast Time 26 SEC (24-38) Sodium Level 144 mmol/L (136-145) 140 mmol/L (136-145) Potassium Level 4.3 mmol/L (3.5-5.1) 4.0 mmol/L (3.5-5.1) Chloride Level 105 mmol/L (98-107) 105 mmol/L (98-107) Carbon Dioxide Level 28 mmol/L (21-32) 23 mmol/L (21-32) Anion Gap 11 (6-14) 12 (6-14) Blood Urea Nitrogen 22 mg/dL (8-26) 20 mg/dL (8-26) Creatinine 1.2 mg/dL (0.7-1.3) 1.1 mg/dL (0.7-1.3) Estimated GFR (Cockcroft-Gault) 64.1 70.9 BUN/Creatinine Ratio 18 (6-20) 18 (6-20) Glucose Level 152 mg/dL (70-99) 207 mg/dL (70-99) Lactic Acid Level 1.4 mmol/L (0.4-2.0) Calcium Level 9.0 mg/dL (8.5-10.1) 8.1 mg/dL (8.5-10.1) Magnesium Level 2.4 mg/dL (1.8-2.4) Total Bilirubin 0.7 mg/dL (0.2-1.0) 0.6 mg/dL (0.2-1.0) Aspartate Amino Transf (AST/SGOT) 102 U/L (15-37) 117 U/L (15-37) Alanine Aminotransferase (ALT/SGPT) 124 U/L (16-63) 119 U/L (16-63) Alkaline Phosphatase 88 U/L (46-116) 75 U/L (46-116) Ammonia 60 mcmol/L (11-34) Creatine Kinase 384 U/L (39-308) Creatine Kinase MB (Mass) 1.7 ng/mL (0.0-3.6) Creatine Kinase MB Relative Index 0.4 % (0-4) Troponin I Quantitative < 0.017 ng/mL (0.000-0.055) Total Protein 7.8 g/dL (6.4-8.2) 6.7 g/dL (6.4-8.2) Albumin 3.7 g/dL (3.4-5.0) 3.1 g/dL (3.4-5.0) Albumin/Globulin Ratio 0.9 (1.0-1.7) 0.9 (1.0-1.7) Ethyl Alcohol Level 350 mg/dL (0-10) Allergies: Coded Allergies: Penicillins (Verified Allergy, Intermediate, rash, 05/31/13) Medications: Current Medications Medications (Trade) Dose Ordered Sig/Abisai Route PRN Reason Start Time Stop Time Status Last Admin Dose Admin Sodium Chloride 1,000 ml @ 1,000 mls/hr 1X ONCE IV 04/22/18 18:45 04/22/18 19:44 DC 04/22/18 19:26 Dexamethasone Sodium Phosphate (Decadron) 10 mg 1X ONCE IV 04/22/18 18:45 04/22/18 18:46 DC 04/22/18 19:26 Lactulose (Lactulose) 30 gm 1X ONCE PO 04/22/18 20:00 04/22/18 20:01 DC 04/22/18 20:40 Multivitamins 10 ml/Thiamine HCl 100 mg/Folic Acid 1 mg/Sodium Chloride 1,011.2 ml @ 1,000.088 mls/hr 1X ONCE IV 04/22/18 20:00 04/22/18 21:00 DC 04/22/18 20:40 Lorazepam (Ativan) 0.5 mg 1X ONCE IV 04/22/18 21:15 04/22/18 21:16 DC 04/22/18 21:39 Ringer's Solution 1,000 ml @ 100 mls/hr Q10H IV 04/22/18 21:12 04/23/18 00:00 Acetaminophen (Tylenol) 650 mg PRN Q6HRS PRN PO Headaches, Temp > 101.5F 04/22/18 21:15 04/23/18 07:30 Lorazepam (Ativan) 2 mg PRN Q1HR PRN IV For CIWA 8-14 04/22/18 21:15 04/23/18 02:19 Multi-Ingredient Mouthwash/Gargle (Gi Cocktail) 20 ml 1X ONCE SWSW 04/23/18 00:45 04/23/18 00:46 DC 04/23/18 01:09 Pantoprazole Sodium (PROTONIX VIAL for IV PUSH) 40 mg DAILYAC IVP 04/23/18 00:45 04/23/18 01:12 Imaging: Imaging: CXR Impression: 1. There is bibasilar and left suprahilar airspace opacity which may be due to infectious infiltrates or edema. Pericardial cardiac silhouette is enlarged. Head and C-spine CT Impression: 1. No convincing acute intracranial abnormality is identified. Impression: 1. No acute cervical spine fracture is identified. 2. There is moderate degenerative disc disease C5-6. Abd US There is coarsening of the hepatic echotexture. There is likely focal fatty sparing near the gallbladder fossa. Right lobe of the liver measured 21.5 cm longitudinal. Pancreas is not well-visualized due to bowel gas. Right kidney measured 11.8 x 6.3 x 6.6 cm, no hydronephrosis. Left kidney measured 11.9 x 5.7 x 6.4 cm, no hydronephrosis. Spleen measured 11.1 cm. Gallbladder is present without intraluminal abnormality, wall thickening, pericholecystic fluid. Abdominal aorta and inferior vena cava were also not well visualized due to bowel gas. Prevoid urinary bladder volume was 945 cc, postvoid volume 254 cc. Impression: 1. There is hepatic steatosis and hepatomegaly. 2. There is distention of urinary bladder, postvoid residual estimated at 245 cc. PE: GEN: NAD HEENT: Atraumatic, PERRL LUNGS: CTAB HEART: RRR ABD: NABS, S/NT, round EXTREMITY: No edema SKIN: No rashes, no jaundice NEURO/PSYCH: seems some confusion A/P: A/P: Fall, +alcohol Mild leukopenia and anemia, transaminitis, hyperammonemia GERD, chronic solid food dysphagia - EGD w/ empiric dilation in 2011 CRC screen, h/o adenomatous polyp, FH colon cancer - last colonoscopy 2011 Hepatic steatosis NSAID use, chronic neck/head pain -- Consider EGD/esophagram later on. Agree w/ PPI - can change to PO if eating. Can continue lactulose. Probably needs to minimize NSAID use. Stop alcohol. Due for outpt screening colonoscopy. CHRISTINE AMANDA Apr 23, 2018 09:16
[2018-04-23] MEDS: IV RINGERS,LACTATED 1000ML 1,000 ML IV SCH ×3 (09:20→17:12)
[2018-04-23] MEDS: MULTIVIT INFUSN,ADULT 4,VIT K 10 ML, THIAMINE INJ 100 MG, FOLIC ACID INJ 1 MG in IV NOR... IV SCH (09:20)
[2018-04-23] MEDS: SENNOSIDES/DOCUSATE 8.6/50MG TABLET. PO SCH ×2 (09:21→20:38)
[2018-04-23 11:00] VITALS: BP 134/77
[2018-04-23] MEDS: LACTULOSE 20 GM/30 ML SOLUTION. PO SCH ×2 (11:07→20:28)
[2018-04-23] MEDS: KETOROLAC 15 MG/ML VIAL. IV PRN ×2 (13:05→18:13)
[2018-04-23 15:00] VITALS: BP 151/86
--- NOTE | 2018-04-23 15:06 | NUR ---
SW following pt for anticipated dc needs. Chart reviewed. Pt lives at home with significant other. RN reported pt is independent with ADL's and no SW indicated at this time. Will continue to evaluate dc needs.
[2018-04-23] MEDS: amLODIPine BESYLATE 5 MG TABLET PO SCH (16:19)
--- NOTE | 2018-04-23 18:47 | PDOC ---
PROGRESS NOTES Chief Complaint Chief Complaint Fall - trauma CT head negative. Likely was 2/2 intoxication. He does have h/o afib, sinus on the monitor. Will monitor him on tele overnight ETOH abuse - itnoxication resolved, will continue wtih CIWA protocol and banana bag daily Dysphagia - states solid food sticks, likely needs EGD with what I suspect to be varices from likely liver disease. Will consult GI Transaminitis - AST is not 2:1 to ALT, but with his ammonia level up and intoxication with alcohol, PTT up this is likely alcoholic hepatitis with fatty liver. US liver reviewed and evidence of hepatic steatosis as expected, especially with his body habitus Encephalopathy - likely ETOH intoxication complicated by hepatic encephalopathy. Will start lactulose. Consult GI. H/o afib - likely 2/2 ETOH, will place on tele Left parotid pain - may need to see ENT outpatient. Nothing obvious on his CT head/neck, but there was no contrast Obesity - counseled on ETOH cessation and weight loss simultaneously Prior abnormal colonoscopy - will consult GI FEN - General diet. NPO after midnight PPX - SCDS FULL CODE Inpatient for encephalopathy multifactorial Follow recommendations from GI Reassess in the am Hopefully discharge soon History of Present Illness History of Present Illness No acute events reported overnight. Patient continues to complain of discomfort secondary to the fall and striking his left belén-face. No obvious fractures discussed with at bedside. No other complaints during my encounter no evidence of withdrawal symptoms at this time Vitals Vitals Vital Signs Date Time Temp Pulse Resp B/P (MAP) Pulse Ox O2 Delivery O2 Flow Rate FiO2 04/23/18 16:19 105 151/86 04/23/18 15:00 97.2 18 96 Room Air 97.2 Physical Exam General: Alert, Cooperative, No acute distress Lungs: Clear Abdomen: Normal bowel sounds, Soft, No masses, Other (Mild RUQ tenderness, hepatomegaly) Extremities: No clubbing, No cyanosis, No edema, Normal pulses, No tenderness/ swelling Skin: No rashes, No breakdown, No significant lesion Labs LABS Laboratory Tests Test 04/22/18 19:28 04/23/18 03:00 White Blood Count 5.5 x10^3/uL (4.0-11.0) 3.7 x10^3/uL (4.0-11.0) Red Blood Count 4.89 x10^6/uL (4.30-5.70) 4.27 x10^6/uL (4.30-5.70) Hemoglobin 14.3 g/dL (13.0-17.5) 12.6 g/dL (13.0-17.5) Hematocrit 42.9 % (39.0-53.0) 37.7 % (39.0-53.0) Mean Corpuscular Volume 88 fL (79-100) 88 fL (79-100) Mean Corpuscular Hemoglobin 29 pg (25-35) 30 pg (25-35) Mean Corpuscular Hemoglobin Concent 33 g/dL (31-37) 34 g/dL (31-37) Red Cell Distribution Width 13.2 % (11.5-14.5) 13.3 % (11.5-14.5) Platelet Count 234 x10^3/uL (140-400) 205 x10^3/uL (140-400) Neutrophils (%) (Auto) 63 % (31-73) 78 % (31-73) Lymphocytes (%) (Auto) 31 % (24-48) 21 % (24-48) Monocytes (%) (Auto) 6 % (0-9) 1 % (0-9) Eosinophils (%) (Auto) 0 % (0-3) 0 % (0-3) Basophils (%) (Auto) 1 % (0-3) 0 % (0-3) Neutrophils # (Auto) 3.5 x10^3uL (1.8-7.7) 2.9 x10^3uL (1.8-7.7) Lymphocytes # (Auto) 1.7 x10^3/uL (1.0-4.8) 0.8 x10^3/uL (1.0-4.8) Monocytes # (Auto) 0.3 x10^3/uL (0.0-1.1) 0.0 x10^3/uL (0.0-1.1) Eosinophils # (Auto) 0.0 x10^3/uL (0.0-0.7) 0.0 x10^3/uL (0.0-0.7) Basophils # (Auto) 0.0 x10^3/uL (0.0-0.2) 0.0 x10^3/uL (0.0-0.2) Prothrombin Time 14.1 SEC (11.7-14.0) Prothromb Time International Ratio 1.1 (0.8-1.1) Activated Partial Thromboplast Time 26 SEC (24-38) Sodium Level 144 mmol/L (136-145) 140 mmol/L (136-145) Potassium Level 4.3 mmol/L (3.5-5.1) 4.0 mmol/L (3.5-5.1) Chloride Level 105 mmol/L (98-107) 105 mmol/L (98-107) Carbon Dioxide Level 28 mmol/L (21-32) 23 mmol/L (21-32) Anion Gap 11 (6-14) 12 (6-14) Blood Urea Nitrogen 22 mg/dL (8-26) 20 mg/dL (8-26) Creatinine 1.2 mg/dL (0.7-1.3) 1.1 mg/dL (0.7-1.3) Estimated GFR (Cockcroft-Gault) 64.1 70.9 BUN/Creatinine Ratio 18 (6-20) 18 (6-20) Glucose Level 152 mg/dL (70-99) 207 mg/dL (70-99) Lactic Acid Level 1.4 mmol/L (0.4-2.0) Calcium Level 9.0 mg/dL (8.5-10.1) 8.1 mg/dL (8.5-10.1) Magnesium Level 2.4 mg/dL (1.8-2.4) Total Bilirubin 0.7 mg/dL (0.2-1.0) 0.6 mg/dL (0.2-1.0) Aspartate Amino Transf (AST/SGOT) 102 U/L (15-37) 117 U/L (15-37) Alanine Aminotransferase (ALT/SGPT) 124 U/L (16-63) 119 U/L (16-63) Alkaline Phosphatase 88 U/L (46-116) 75 U/L (46-116) Ammonia 60 mcmol/L (11-34) Creatine Kinase 384 U/L (39-308) Creatine Kinase MB (Mass) 1.7 ng/mL (0.0-3.6) Creatine Kinase MB Relative Index 0.4 % (0-4) Troponin I Quantitative < 0.017 ng/mL (0.000-0.055) Total Protein 7.8 g/dL (6.4-8.2) 6.7 g/dL (6.4-8.2) Albumin 3.7 g/dL (3.4-5.0) 3.1 g/dL (3.4-5.0) Albumin/Globulin Ratio 0.9 (1.0-1.7) 0.9 (1.0-1.7) Ethyl Alcohol Level 350 mg/dL (0-10) Review of Systems Review of Systems Pertinent as per history of present illness otherwise 14 point review of system is negative Assessment and Plan Assessmemt and Plan Problems Medical Problems: (1) Alcohol abuse Status: Acute Comment Review of Relevant I have reviewed the following items jacky (where applicable) has been applied. Labs Laboratory Tests Test 04/22/18 18:25 04/22/18 19:28 04/23/18 03:00 Urine Color Yellow Urine Clarity Clear Urine pH 6.0 Urine Specific [place] 1.015 Urine Protein Negative mg/dL (NEG-TRACE) Urine Glucose (UA) Negative mg/dL (NEG) Urine Ketones (Stick) Negative mg/dL (NEG) Urine Blood Trace (NEG) Urine Nitrite Negative (NEG) Urine Bilirubin Negative (NEG) Urine Urobilinogen Dipstick 1.0 mg/dL (0.2 mg/dL) Urine Leukocyte Esterase Negative (NEG) Urine RBC Occ /HPF (0-2) Urine WBC 1-4 /HPF (0-4) Urine Squamous Epithelial Cells Occ /LPF Urine Bacteria Few /HPF (0-FEW) Urine Mucus Slight /LPF Urine Opiates Screen Neg (NEG) Urine Methadone Screen Neg (NEG) Urine Barbiturates Neg (NEG) Urine Phencyclidine Screen Neg (NEG) Urine Amphetamine/Methamphetamine Neg (NEG) Urine Benzodiazepines Screen Neg (NEG) Urine Cocaine Screen Neg (NEG) Urine Cannabinoids Screen Neg (NEG) Urine Ethyl Alcohol Pos (NEG) White Blood Count 5.5 x10^3/uL (4.0-11.0) 3.7 x10^3/uL (4.0-11.0) Red Blood Count 4.89 x10^6/uL (4.30-5.70) 4.27 x10^6/uL (4.30-5.70) Hemoglobin 14.3 g/dL (13.0-17.5) 12.6 g/dL (13.0-17.5) Hematocrit 42.9 % (39.0-53.0) 37.7 % (39.0-53.0) Mean Corpuscular Volume 88 fL (79-100) 88 fL (79-100) Mean Corpuscular Hemoglobin 29 pg (25-35) 30 pg (25-35) Mean Corpuscular Hemoglobin Concent 33 g/dL (31-37) 34 g/dL (31-37) Red Cell Distribution Width 13.2 % (11.5-14.5) 13.3 % (11.5-14.5) Platelet Count 234 x10^3/uL (140-400) 205 x10^3/uL (140-400) Neutrophils (%) (Auto) 63 % (31-73) 78 % (31-73) Lymphocytes (%) (Auto) 31 % (24-48) 21 % (24-48) Monocytes (%) (Auto) 6 % (0-9) 1 % (0-9) Eosinophils (%) (Auto) 0 % (0-3) 0 % (0-3) Basophils (%) (Auto) 1 % (0-3) 0 % (0-3) Neutrophils # (Auto) 3.5 x10^3uL (1.8-7.7) 2.9 x10^3uL (1.8-7.7) Lymphocytes # (Auto) 1.7 x10^3/uL (1.0-4.8) 0.8 x10^3/uL (1.0-4.8) Monocytes # (Auto) 0.3 x10^3/uL (0.0-1.1) 0.0 x10^3/uL (0.0-1.1) Eosinophils # (Auto) 0.0 x10^3/uL (0.0-0.7) 0.0 x10^3/uL (0.0-0.7) Basophils # (Auto) 0.0 x10^3/uL (0.0-0.2) 0.0 x10^3/uL (0.0-0.2) Prothrombin Time 14.1 SEC (11.7-14.0) Prothromb Time International Ratio 1.1 (0.8-1.1) Activated Partial Thromboplast Time 26 SEC (24-38) Sodium Level 144 mmol/L (136-145) 140 mmol/L (136-145) Potassium Level 4.3 mmol/L (3.5-5.1) 4.0 mmol/L (3.5-5.1) Chloride Level 105 mmol/L (98-107) 105 mmol/L (98-107) Carbon Dioxide Level 28 mmol/L (21-32) 23 mmol/L (21-32) Anion Gap 11 (6-14) 12 (6-14) Blood Urea Nitrogen 22 mg/dL (8-26) 20 mg/dL (8-26) Creatinine 1.2 mg/dL (0.7-1.3) 1.1 mg/dL (0.7-1.3) Estimated GFR (Cockcroft-Gault) 64.1 70.9 BUN/Creatinine Ratio 18 (6-20) 18 (6-20) Glucose Level 152 mg/dL (70-99) 207 mg/dL (70-99) Lactic Acid Level 1.4 mmol/L (0.4-2.0) Calcium Level 9.0 mg/dL (8.5-10.1) 8.1 mg/dL (8.5-10.1) Magnesium Level 2.4 mg/dL (1.8-2.4) Total Bilirubin 0.7 mg/dL (0.2-1.0) 0.6 mg/dL (0.2-1.0) Aspartate Amino Transf (AST/SGOT) 102 U/L (15-37) 117 U/L (15-37) Alanine Aminotransferase (ALT/SGPT) 124 U/L (16-63) 119 U/L (16-63) Alkaline Phosphatase 88 U/L (46-116) 75 U/L (46-116) Ammonia 60 mcmol/L (11-34) Creatine Kinase 384 U/L (39-308) Creatine Kinase MB (Mass) 1.7 ng/mL (0.0-3.6) Creatine Kinase MB Relative Index 0.4 % (0-4) Troponin I Quantitative < 0.017 ng/mL (0.000-0.055) Total Protein 7.8 g/dL (6.4-8.2) 6.7 g/dL (6.4-8.2) Albumin 3.7 g/dL (3.4-5.0) 3.1 g/dL (3.4-5.0) Albumin/Globulin Ratio 0.9 (1.0-1.7) 0.9 (1.0-1.7) Ethyl Alcohol Level 350 mg/dL (0-10) Laboratory Tests Test 04/22/18 19:28 04/23/18 03:00 White Blood Count 5.5 x10^3/uL (4.0-11.0) 3.7 x10^3/uL (4.0-11.0) Red Blood Count 4.89 x10^6/uL (4.30-5.70) 4.27 x10^6/uL (4.30-5.70) Hemoglobin 14.3 g/dL (13.0-17.5) 12.6 g/dL (13.0-17.5) Hematocrit 42.9 % (39.0-53.0) 37.7 % (39.0-53.0) Mean Corpuscular Volume 88 fL (79-100) 88 fL (79-100) Mean Corpuscular Hemoglobin 29 pg (25-35) 30 pg (25-35) Mean Corpuscular Hemoglobin Concent 33 g/dL (31-37) 34 g/dL (31-37) Red Cell Distribution Width 13.2 % (11.5-14.5) 13.3 % (11.5-14.5) Platelet Count 234 x10^3/uL (140-400) 205 x10^3/uL (140-400) Neutrophils (%) (Auto) 63 % (31-73) 78 % (31-73) Lymphocytes (%) (Auto) 31 % (24-48) 21 % (24-48) Monocytes (%) (Auto) 6 % (0-9) 1 % (0-9) Eosinophils (%) (Auto) 0 % (0-3) 0 % (0-3) Basophils (%) (Auto) 1 % (0-3) 0 % (0-3) Neutrophils # (Auto) 3.5 x10^3uL (1.8-7.7) 2.9 x10^3uL (1.8-7.7) Lymphocytes # (Auto) 1.7 x10^3/uL (1.0-4.8) 0.8 x10^3/uL (1.0-4.8) Monocytes # (Auto) 0.3 x10^3/uL (0.0-1.1) 0.0 x10^3/uL (0.0-1.1) Eosinophils # (Auto) 0.0 x10^3/uL (0.0-0.7) 0.0 x10^3/uL (0.0-0.7) Basophils # (Auto) 0.0 x10^3/uL (0.0-0.2) 0.0 x10^3/uL (0.0-0.2) Prothrombin Time 14.1 SEC (11.7-14.0) Prothromb Time International Ratio 1.1 (0.8-1.1) Activated Partial Thromboplast Time 26 SEC (24-38) Sodium Level 144 mmol/L (136-145) 140 mmol/L (136-145) Potassium Level 4.3 mmol/L (3.5-5.1) 4.0 mmol/L (3.5-5.1) Chloride Level 105 mmol/L (98-107) 105 mmol/L (98-107) Carbon Dioxide Level 28 mmol/L (21-32) 23 mmol/L (21-32) Anion Gap 11 (6-14) 12 (6-14) Blood Urea Nitrogen 22 mg/dL (8-26) 20 mg/dL (8-26) Creatinine 1.2 mg/dL (0.7-1.3) 1.1 mg/dL (0.7-1.3) Estimated GFR (Cockcroft-Gault) 64.1 70.9 BUN/Creatinine Ratio 18 (6-20) 18 (6-20) Glucose Level 152 mg/dL (70-99) 207 mg/dL (70-99) Lactic Acid Level 1.4 mmol/L (0.4-2.0) Calcium Level 9.0 mg/dL (8.5-10.1) 8.1 mg/dL (8.5-10.1) Magnesium Level 2.4 mg/dL (1.8-2.4) Total Bilirubin 0.7 mg/dL (0.2-1.0) 0.6 mg/dL (0.2-1.0) Aspartate Amino Transf (AST/SGOT) 102 U/L (15-37) 117 U/L (15-37) Alanine Aminotransferase (ALT/SGPT) 124 U/L (16-63) 119 U/L (16-63) Alkaline Phosphatase 88 U/L (46-116) 75 U/L (46-116) Ammonia 60 mcmol/L (11-34) Creatine Kinase 384 U/L (39-308) Creatine Kinase MB (Mass) 1.7 ng/mL (0.0-3.6) Creatine Kinase MB Relative Index 0.4 % (0-4) Troponin I Quantitative < 0.017 ng/mL (0.000-0.055) Total Protein 7.8 g/dL (6.4-8.2) 6.7 g/dL (6.4-8.2) Albumin 3.7 g/dL (3.4-5.0) 3.1 g/dL (3.4-5.0) Albumin/Globulin Ratio 0.9 (1.0-1.7) 0.9 (1.0-1.7) Ethyl Alcohol Level 350 mg/dL (0-10) Medications Current Medications Sodium Chloride 1,000 ml @ 1,000 mls/hr 1X ONCE IV Last administered on 19:26; Start 04/22/18 at 18:45; Stop 04/22/18 at 19:44; Status DC Dexamethasone Sodium Phosphate (Decadron) 10 mg 1X ONCE IV Last administered on 04/22/18 19:26; Start 04/22/18 at 18:45; Stop 04/22/18 at 18:46; Status DC Lactulose (Lactulose) 30 gm 1X ONCE PO Last administered on 04/22/18 20:40; Start 04/22/18 at 20:00; Stop 04/22/18 at 20:01; Status DC Multivitamins 10 ml/Thiamine HCl 100 mg/Folic Acid 1 mg/Sodium Chloride 1,011.2 ml @ 1,000.088 mls/hr 1X ONCE IV Last administered on 3/6/19at 20:40; Start 04/22/18 at 20:00; Stop 04/22/18 at 21:00; Status DC Lorazepam (Ativan) 0.5 mg 1X ONCE IV Last administered on 04/22/18 21:39; Start 04/22/18 at 21:15; Stop 04/22/18 at 21:16; Status DC Ondansetron HCl (Zofran) 4 mg PRN Q8HRS PRN IV NAUSEA/VOMITING; Start 04/22/18 at 21:15; Stop 04/22/18 at 21:23; Status DC Ringer's Solution 1,000 ml @ 100 mls/hr Q10H IV Last administered on 04/23/18 09:20; Start 04/22/18 at 21:12 Ondansetron HCl (Zofran) 4 mg PRN Q6HRS PRN IV NAUSEA/VOMITING 1ST CHOICE; Start 04/22/18 at 21:15 Prochlorperazine Edisylate (Compazine) 10 mg PRN Q6HRS PRN IV NAUSEA/VOMITING 2ND CHOICE; Start 04/22/18 at 21:15 Ketorolac Tromethamine (Toradol 15mg Vial) 15 mg PRN Q6HRS PRN IV MODERATE PAIN Last administered on 04/23/18 18:13; Start 04/22/18 at 21:15; Stop 04/27/18 at 21:14 Acetaminophen (Tylenol) 650 mg PRN Q6HRS PRN PO Headaches, Temp > 101.5F Last administered on 04/23/18 18:11; Start 04/22/18 at 21:15 Ibuprofen (Motrin) 400 mg PRN Q6HRS PRN PO MILD PAIN Last administered on 09:34; Start 04/22/18 at 21:15 Senna/Docusate Sodium (Senna Plus) 1 tab BID PO Last administered on 04/23/18 09:21; Start 04/23/18 at 09:00 Lactulose (Lactulose) 20 gm PRN Q12HR PRN PO CONSTIPATION; Start 04/22/18 at 21: 15; Stop 04/23/18 at 10:20; Status DC Multivitamins 10 ml/Thiamine HCl 100 mg/Folic Acid 1 mg/Sodium Chloride 1,011.2 ml @ 100 mls/ hr DAILY IV Last administered on 04/23/18at 09:20; Start 04/23/18 at 09:00; Stop 04/26/18 at 19:07 Lorazepam (Ativan) 4 mg PRN Q1HR PRN PO For CIWA 8-14; Start 04/22/18 at 21:15 Lorazepam (Ativan) 2 mg PRN Q1HR PRN IV For CIWA 8-14 Last administered on at 02:19; Start 04/22/18 at 21:15 Haloperidol Lactate (Haldol Inj) 5 mg PRN Q4HRS PRN IVP Hallucinatns,Confusn, Delirium; Start 04/22/18 at 21:15 Diphenhydramine HCl (Benadryl) 25 mg PRN Q15MIN PRN IVP EPS symptoms 2'Haldol admin; Start 04/22/18 at 21:15 Clonidine HCl (Catapres) 0.1 mg PRN Q1HR PRN PO SBP > 180 or DBP > 100, MRX3; Start 04/22/18 at 21:15 Multi-Ingredient Mouthwash/Gargle (Gi Cocktail) 20 ml 1X ONCE SWSW Last administered on 04/23/18at 01:09; Start 04/23/18 at 00:45; Stop 04/23/18 at 00:46; Status DC Pantoprazole Sodium (PROTONIX VIAL for IV PUSH) 40 mg DAILYAC IVP Last administered on 04/23/18at 09:21; Start 04/23/18 at 00:45; Stop 04/23/18 at 10:20; Status DC Lactulose (Lactulose) 20 gm BID PO Last administered on 04/23/18at 11:07; Start 04/23/18 at 10:30 Pantoprazole Sodium (Protonix) 40 mg DAILYAC PO ; Start 04/24/18 at 07:30 Amlodipine Besylate (Norvasc) 5 mg DAILY PO Last administered on 04/23/18at 16:19 ; Start 04/23/18 at 15:30 Betamethasone/ Clotrimazole (Lotrisone) 1 tae BID TP ; Start 04/23/18 at 21:00 Losartan Potassium (Cozaar) 100 mg DAILY PO ; Start 04/24/18 at 09:00 Atorvastatin Calcium (Lipitor) 80 mg QHS PO ; Start 04/23/18 at 21:00 Metoprolol Tartrate (Lopressor) 50 mg BID PO ; Start 04/23/18 at 21:00 Active Scripts Active Reported Prednisone Unknown Strength Tablet 10 Mg PO DAILY Taper: On Day 6 of 10: 04/23 Take 3 tabs once daily 04/24, 04/25 Take 2 tabs once daily for 2 days 04/26, 04/27 Take 1 tab daily for 2 days Lotrisone Cream (Clotrimazole/Betamethasone Dip) 15 Gm Cream..g. 1 Tae TP BID Amlodipine Besylate 5 Mg Tablet 5 Mg PO DAILY Allopurinol 100 Mg Tablet 1 Tab PO DAILY Losartan Potassium 100 Mg Tablet 100 Mg PO DAILY Crestor (Rosuvastatin Calcium) 20 Mg Tablet 1 Tab PO DAILY Metoprolol Tartrate 50 Mg Tablet 150 Mg PO DAILY Vitals/I & O Vital Sign - Last 24 Hours 04/22/18 04/22/18 04/22/18 04/23/18 18:52 22:00 23:11 03:15 Temp 98.1 97.3 97.4 98.1 97.3 97.4 Pulse 97 86 91 91 Resp 20 18 20 20 B/P (MAP) 138/75 (96) 145/82 (103) 115/69 (84) Pulse Ox 96 97 95 94 O2 Delivery Room Air Room Air Room Air 04/23/18 04/23/18 04/23/18 04/23/18 07:00 08:00 11:00 15:00 Temp 97.4 98.1 97.2 97.4 98.1 97.2 Pulse 91 93 105 Resp 18 20 18 B/P (MAP) 143/85 (104) 134/77 (96) 151/86 (107) Pulse Ox 95 94 96 O2 Delivery Room Air Room Air Room Air Room Air 04/23/18 16:19 Pulse 105 B/P (MAP) 151/86 Intake and Output 04/22/18 04/22/18 04/23/18 15:00 23:00 07:00 Intake Total 2010.2 ml Output Total 0 ml Balance 2010.2 ml 0 ml JOE PEREZ MD Apr 23, 2018 18:47
[2018-04-23 19:00] VITALS: BP 143/75
[2018-04-23] MEDS: CLOTRIMAZOLE/BETAMETH 1%-0.05% TOPICAL CREAM 15GM TUBE. TP SCH (20:28)
[2018-04-23] MEDS: METOPROLOL TART IMMED RELEASE 50 MG TABLET. PO SCH (20:29)
[2018-04-23] MEDS ORDERED: ATORVASTATIN CALCIUM 40 MG TABLET. PO SCH (21:00)
[2018-04-23 23:00] VITALS: BP 153/81
[2018-04-24 03:00] VITALS: BP 169/97
[2018-04-24] MEDS: IV RINGERS,LACTATED 1000ML 1,000 ML IV SCH (03:12)
[2018-04-24] MEDS: KETOROLAC 15 MG/ML VIAL. IV PRN (04:53)
[2018-04-24 07:00] VITALS: BP 137/81
[2018-04-24] MEDS ORDERED: PANTOPRAZOLE 40 MG TABLET.DR. PO SCH (07:30)
[2018-04-24] MEDS ORDERED: LOSARTAN POTASSIUM 50 MG TABLET. PO SCH (09:00)
[2018-04-24] MEDS: MULTIVIT INFUSN,ADULT 4,VIT K 10 ML, THIAMINE INJ 100 MG, FOLIC ACID INJ 1 MG in IV NOR... IV SCH ×2 (09:00→09:12)
[2018-04-24] MEDS: METOPROLOL TART IMMED RELEASE 50 MG TABLET. PO SCH (09:13)
[2018-04-24] MEDS: amLODIPine BESYLATE 5 MG TABLET PO SCH (09:14)
[2018-04-24] MEDS: LACTULOSE 20 GM/30 ML SOLUTION. PO SCH (09:14)
[2018-04-24] MEDS: SENNOSIDES/DOCUSATE 8.6/50MG TABLET. PO SCH (09:14)
[2018-04-24] MEDS: CLOTRIMAZOLE/BETAMETH 1%-0.05% TOPICAL CREAM 15GM TUBE. TP SCH (09:15)
--- NOTE | 2018-04-24 10:31 | PDOC ---
Subjective: Subjective: Tolerating PO, vague complaints re: swallowing and neck/head pain. No abd pain, has stooled. Wants to go home, says "this was all an accident." Objective: Vital Signs: Vital Signs Date Time Temp Pulse Resp B/P (MAP) Pulse Ox O2 Delivery O2 Flow Rate FiO2 04/24/18 09:14 79 137/81 04/24/18 07:00 97.3 18 98 Room Air 97.3 PE: GEN: NAD LUNGS: CTAB HEART: RRR ABD: S/ND/NT NEURO/PSYCH: A & O 3 - knows he's at [employer], knows who is president, knows his birthday, at first said the year was "[age]inet[birth year] " but then said 2018 A/P: Alcohol intoxication Chronic dysphagia and left neck/head pain Hepatic steatosis, hyperammonemia -- EGD later - could pursue as outpt (w/ tandem screening colonoscopy). Would continue PPI. Stop drinking. CHRISTINE AMANDA Apr 24, 2018 10:31
[2018-04-24 11:00] VITALS: BP 142/93
[2018-04-24 11:48] LABS: BASO % 0 % (0-3); EOS % 0 % (0-3); HEMATOCRIT 40.9 % (39.0-53.0); HEMOGLOBIN 13.8 g/dL (13.0-17.5); LYMPH # 1.5 x10^3/uL (1.0-4.8); LYMPH % 20 % (24-48); MEAN CORPUSCULAR HEMOGLOBIN 30 pg (25-35); MEAN CORPUSCULAR HGB CONC 34 g/dL (31-37); MEAN CORPUSCULAR VOLUME 88 fL (79-100); MONO # 0.5 x10^3/uL (0.0-1.1); MONO % 7 % (0-9); NEUT # 5.5 x10^3uL (1.8-7.7); NEUT % 73 % (31-73); PLATELET COUNT 180 x10^3/uL (140-400); RED BLOOD COUNT 4.66 x10^6/uL (4.30-5.70); WHITE BLOOD COUNT 7.7 x10^3/uL (4.0-11.0)
[2018-04-24] MEDS ORDERED: ACET325T9 PO (12:37)
--- NOTE | 2018-04-24 12:42 | NUR ---
Patient refused to have potline monitor this morning after taking a shower at 0800, said that he will be discharged by his doctor soon.
--- NOTE | 2018-04-24 12:47 | PDOC3 ---
Discharge Summary Visit Information Date of Admission: Apr 22, 2018 Date of Discharge: Apr 24, 2018 Admitting Diagnosis: Alcohol intoxication and fall Final Diagnosis Fall - trauma CT head negative. Likely was 2/2 intoxication. ETOH abuse - intoxication resolved Dysphagia -improved, GI will see in the outpatient setting. Transaminitis - hepatic steatosis per US Encephalopathy - likely ETOH intoxication complicated by hepatic encephalopathy. Resolved H/o afib - likely 2/2 ETOH, Left parotid pain - may need to see ENT outpatient. Nothing obvious on his CT head/neck Morbid Obesity - counseled on ETOH cessation and weight loss simultaneously Prior abnormal colonoscopy - needs close follow up in the outpatient setting. Brief Hospital Course Allergies Allergies Coded Allergies Type Severity Reaction Last Updated Verified Penicillins Allergy Intermediate rash 05/31/13 Yes Vital Signs Vital Signs Date Time Temp Pulse Resp B/P (MAP) Pulse Ox O2 Delivery O2 Flow Rate FiO2 04/24/18 11:00 97.8 77 18 142/93 (109) 97 Room Air 97.8 Lab Results Laboratory Tests Test 04/22/18 18:25 04/22/18 19:28 04/23/18 03:00 04/24/18 11:28 Urine Color Yellow Urine Clarity Clear Urine pH 6.0 Urine Specific Emmalena 1.015 Urine Protein Negative mg/dL (NEG-TRACE) Urine Glucose (UA) Negative mg/dL (NEG) Urine Ketones (Stick) Negative mg/dL (NEG) Urine Blood Trace (NEG) Urine Nitrite Negative (NEG) Urine Bilirubin Negative (NEG) Urine Urobilinogen Dipstick 1.0 mg/dL (0.2 mg/dL) Urine Leukocyte Esterase Negative (NEG) Urine RBC Occ /HPF (0-2) Urine WBC 1-4 /HPF (0-4) Urine Squamous Epithelial Cells Occ /LPF Urine Bacteria Few /HPF (0-FEW) Urine Mucus Slight /LPF Urine Opiates Screen Neg (NEG) Urine Methadone Screen Neg (NEG) Urine Barbiturates Neg (NEG) Urine Phencyclidine Screen Neg (NEG) Urine Amphetamine/Methamphetamine Neg (NEG) Urine Benzodiazepines Screen Neg (NEG) Urine Cocaine Screen Neg (NEG) Urine Cannabinoids Screen Neg (NEG) Urine Ethyl Alcohol Pos (NEG) White Blood Count 5.5 x10^3/uL (4.0-11.0) 3.7 x10^3/uL (4.0-11.0) Red Blood Count 4.89 x10^6/uL (4.30-5.70) 4.27 x10^6/uL (4.30-5.70) Hemoglobin 14.3 g/dL (13.0-17.5) 12.6 g/dL (13.0-17.5) Hematocrit 42.9 % (39.0-53.0) 37.7 % (39.0-53.0) Mean Corpuscular Volume 88 fL (79-100) 88 fL (79-100) Mean Corpuscular Hemoglobin 29 pg (25-35) 30 pg (25-35) Mean Corpuscular Hemoglobin Concent 33 g/dL (31-37) 34 g/dL (31-37) Red Cell Distribution Width 13.2 % (11.5-14.5) 13.3 % (11.5-14.5) Platelet Count 234 x10^3/uL (140-400) 205 x10^3/uL (140-400) Neutrophils (%) (Auto) 63 % (31-73) 78 % (31-73) Lymphocytes (%) (Auto) 31 % (24-48) 21 % (24-48) Monocytes (%) (Auto) 6 % (0-9) 1 % (0-9) Eosinophils (%) (Auto) 0 % (0-3) 0 % (0-3) Basophils (%) (Auto) 1 % (0-3) 0 % (0-3) Neutrophils # (Auto) 3.5 x10^3uL (1.8-7.7) 2.9 x10^3uL (1.8-7.7) Lymphocytes # (Auto) 1.7 x10^3/uL (1.0-4.8) 0.8 x10^3/uL (1.0-4.8) Monocytes # (Auto) 0.3 x10^3/uL (0.0-1.1) 0.0 x10^3/uL (0.0-1.1) Eosinophils # (Auto) 0.0 x10^3/uL (0.0-0.7) 0.0 x10^3/uL (0.0-0.7) Basophils # (Auto) 0.0 x10^3/uL (0.0-0.2) 0.0 x10^3/uL (0.0-0.2) Prothrombin Time 14.1 SEC (11.7-14.0) Prothromb Time International Ratio 1.1 (0.8-1.1) Activated Partial Thromboplast Time 26 SEC (24-38) Sodium Level 144 mmol/L (136-145) 140 mmol/L (136-145) Potassium Level 4.3 mmol/L (3.5-5.1) 4.0 mmol/L (3.5-5.1) Chloride Level 105 mmol/L (98-107) 105 mmol/L (98-107) Carbon Dioxide Level 28 mmol/L (21-32) 23 mmol/L (21-32) Anion Gap 11 (6-14) 12 (6-14) Blood Urea Nitrogen 22 mg/dL (8-26) 20 mg/dL (8-26) Creatinine 1.2 mg/dL (0.7-1.3) 1.1 mg/dL (0.7-1.3) Estimated GFR (Cockcroft-Gault) 64.1 70.9 BUN/Creatinine Ratio 18 (6-20) 18 (6-20) Glucose Level 152 mg/dL (70-99) 207 mg/dL (70-99) Lactic Acid Level 1.4 mmol/L (0.4-2.0) Calcium Level 9.0 mg/dL (8.5-10.1) 8.1 mg/dL (8.5-10.1) Magnesium Level 2.4 mg/dL (1.8-2.4) Total Bilirubin 0.7 mg/dL (0.2-1.0) 0.6 mg/dL (0.2-1.0) Aspartate Amino Transf (AST/SGOT) 102 U/L (15-37) 117 U/L (15-37) Alanine Aminotransferase (ALT/SGPT) 124 U/L (16-63) 119 U/L (16-63) Alkaline Phosphatase 88 U/L (46-116) 75 U/L (46-116) Ammonia 60 mcmol/L (11-34) 16 mcmol/L (11-34) Creatine Kinase 384 U/L (39-308) Creatine Kinase MB (Mass) 1.7 ng/mL (0.0-3.6) Creatine Kinase MB Relative Index 0.4 % (0-4) Troponin I Quantitative < 0.017 ng/mL (0.000-0.055) Total Protein 7.8 g/dL (6.4-8.2) 6.7 g/dL (6.4-8.2) Albumin 3.7 g/dL (3.4-5.0) 3.1 g/dL (3.4-5.0) Albumin/Globulin Ratio 0.9 (1.0-1.7) 0.9 (1.0-1.7) Ethyl Alcohol Level 350 mg/dL (0-10) Test 04/24/18 11:30 White Blood Count 7.7 x10^3/uL (4.0-11.0) Red Blood Count 4.66 x10^6/uL (4.30-5.70) Hemoglobin 13.8 g/dL (13.0-17.5) Hematocrit 40.9 % (39.0-53.0) Mean Corpuscular Volume 88 fL (79-100) Mean Corpuscular Hemoglobin 30 pg (25-35) Mean Corpuscular Hemoglobin Concent 34 g/dL (31-37) Red Cell Distribution Width 13.0 % (11.5-14.5) Platelet Count 180 x10^3/uL (140-400) Neutrophils (%) (Auto) 73 % (31-73) Lymphocytes (%) (Auto) 20 % (24-48) Monocytes (%) (Auto) 7 % (0-9) Eosinophils (%) (Auto) 0 % (0-3) Basophils (%) (Auto) 0 % (0-3) Neutrophils # (Auto) 5.5 x10^3uL (1.8-7.7) Lymphocytes # (Auto) 1.5 x10^3/uL (1.0-4.8) Monocytes # (Auto) 0.5 x10^3/uL (0.0-1.1) Eosinophils # (Auto) 0.0 x10^3/uL (0.0-0.7) Basophils # (Auto) 0.0 x10^3/uL (0.0-0.2) Laboratory Tests Test 04/24/18 11:28 04/24/18 11:30 Ammonia 16 mcmol/L (11-34) White Blood Count 7.7 x10^3/uL (4.0-11.0) Red Blood Count 4.66 x10^6/uL (4.30-5.70) Hemoglobin 13.8 g/dL (13.0-17.5) Hematocrit 40.9 % (39.0-53.0) Mean Corpuscular Volume 88 fL (79-100) Mean Corpuscular Hemoglobin 30 pg (25-35) Mean Corpuscular Hemoglobin Concent 34 g/dL (31-37) Red Cell Distribution Width 13.0 % (11.5-14.5) Platelet Count 180 x10^3/uL (140-400) Neutrophils (%) (Auto) 73 % (31-73) Lymphocytes (%) (Auto) 20 % (24-48) Monocytes (%) (Auto) 7 % (0-9) Eosinophils (%) (Auto) 0 % (0-3) Basophils (%) (Auto) 0 % (0-3) Neutrophils # (Auto) 5.5 x10^3uL (1.8-7.7) Lymphocytes # (Auto) 1.5 x10^3/uL (1.0-4.8) Monocytes # (Auto) 0.5 x10^3/uL (0.0-1.1) Eosinophils # (Auto) 0.0 x10^3/uL (0.0-0.7) Basophils # (Auto) 0.0 x10^3/uL (0.0-0.2) Brief Hospital Course Mr. Phelps is a 48 old male who presented emergency department after suffering a mechanical fall. The patient recently had a in the family and unfortunately decided to cope by drinking excessively. The patient acknowledges that he this was not the right choice and unfortunately suffered a fall with subsequent trauma to his left face. Patient fortunately did not have any fractures as evidence on her CAT scan there were no lesions noted either the complaining off dysphagia during his hospital stay reason why we consulted GI. The patient had a history of abnormal colonoscopy in the past and he'll likely need close follow-up. This was discussed with patient's over the phone as well. Patient's hyperammonemia resolved with lactulose treatment patient was in good spirits to be dismissed home and though he still having some distress due to his personal loss recently. Signs and symptoms of alarm were discussed with patient prior to dismissal all concerns were addressed with patient's as well prior to dismissal hemodynamically stable, of note is that he presented hyperglycemia as a consequence of prednisone therapy. I encouraged them to follow up closely with her primary care physician he definitely is at increased risk for developing diabetes given his body habitus and BMI of greater than 40. I also stressed to the patient's the importance of following up with pulmonology for a sleep study in the outpatient setting noted to rule out obstructive sleep apnea as well. Physical exam: Lungs clear to auscultation with good inspiratory effort Cardia vascular S1-S2 regular rhythm no murmurs gallops or rubs Discharge Information Condition at Discharge: Improved Follow Up: Weeks (1 week with primary care physician) Disposition/Orders: D/C to Home Scheduled Acetaminophen (Tylenol) 325 Mg Tablet, 1-2 TAB PO QID for headache for 5 Days, # 60 Ref 2 Prescribed by: JOE PEREZ MD on 04/24/18 1237 Allopurinol (Allopurinol) 100 Mg Tablet, 1 TAB PO DAILY for gout, #30 Ref 5 ( Reported) Entered as Reported by: ERIK RODRIGUEZ on 04/23/18238 Last Action: HELD on 04/23/181451 by JOE PEREZ MD Amlodipine Besylate (Amlodipine Besylate) 5 Mg Tablet, 5 MG PO DAILY for htn, ( Reported) Entered as Reported by: ERIK RODRIGUEZ on 04/23/18238 Last Action: Continued on 04/23/181453 by JOE PEREZ MD Clotrimazole/Betamethasone Dip (Lotrisone Cream) 15 Gm Cream..g., 1 WILFRIDO TP BID for skin itching, #45 (Reported) Entered as Reported by: ERIK RODRIGUEZ on 04/23/18238 Last Action: Continued on 04/23/181453 by JOE PEREZ MD Losartan Potassium (Losartan Potassium) 100 Mg Tablet, 100 MG PO DAILY for HYPERTENSION, (Reported) Entered as Reported by: ERIK RODRIGUEZ on 04/23/18238 Last Action: Converted on 04/23/181453 by JOE PEREZ MD Metoprolol Tartrate (Metoprolol Tartrate) 50 Mg Tablet, 150 MG PO DAILY for htn, (Reported) Entered as Reported by: DANILO MCCORMACK on 05/31/13 0854 Last Action: HELD on 04/23/181451 by JOE PEREZ MD Prednisone (Prednisone) Unknown Strength Tablet, 10 MG PO DAILY for rashes, # 360 Ref 3 (Reported) Taper: On Day 6 of : 04/23 Take 3 tabs once daily 04/24, 04/25 Take 2 tabs once daily for 2 days 04/26, 04/27 Take 1 tab daily for 2 days Entered as Reported by: ERIK RODRIGUEZ on 04/23/18238 Last Taken: UNKNOWN on Unknown Date & Time Last Action: Edited on 04/23/181509 by YOVANA IRENE RN Rosuvastatin Calcium (Crestor) 20 Mg Tablet, 1 TAB PO DAILY for cholesterol, # 30 Ref 5 (Reported) Entered as Reported by: ERIK RODRIGUEZ on 04/23/18238 Last Action: Converted on 04/23/181453 by MD ANA DOMINIQUE HECTOR M MD Apr 24, 2018 12:47
[2018-04-24 12:48] LABS: ALBUMIN 3.1 g/dL (3.4-5.0); ALBUMIN/GLOBULIN RATIO 0.8 (1.0-1.7); CALCIUM 8.3 mg/dL (8.5-10.1); CREATININE 1.2 mg/dL (0.7-1.3); GFR 64.1; POTASSIUM 3.8 mmol/L (3.5-5.1); TOTAL BILIRUBIN 1.4 mg/dL (0.2-1.0); TOTAL PROTEIN 6.8 g/dL (6.4-8.2)
--- NOTE | 2018-04-24 13:34 | NUR ---
Discharge Note: MARI CARTER [address] Discharge instructions and discharge home medications reviewed with patient and a copy given. All questions have been answered and understanding verbalized. The following instructions and handouts were given: Alcohol withdrawal To ff up with PCP in 1 week. Discontinued lines and drains:peripheral IV intact, patient tolerated removal, no complications noted. Patient discharged to home with spouse via wheelchair at 1330.
== END 2018-04-24 13:30 | disposition home or self-care (01) | DRG 442 ==
LOC: ER 18:00 → 5 NORTH 21:15
PROVIDERS: ADMIT Internal Medicine; ATTEND Internal Medicine
DX: K72.90 Hepatic failure, unspecified without coma (principal); Z68.41 Body mass index [BMI] 40.0-44.9, adult; F10.129 Alcohol abuse with intoxication, unspecified; N32.89 Other specified disorders of bladder; E66.01 Morbid (severe) obesity due to excess calories; E78.00 Pure hypercholesterolemia, unspecified; E78.5 Hyperlipidemia, unspecified; I10 Essential (primary) hypertension; I48.91 Unspecified atrial fibrillation; J44.9 Chronic obstructive pulmonary disease, unspecified; K21.9 Gastro-esophageal reflux disease without esophagitis; K63.5 Polyp of colon; K64.9 Unspecified hemorrhoids; K76.0 Fatty (change of) liver, not elsewhere classified; M10.9 Gout, unspecified; M50.322 Other cervical disc degeneration at C5-C6 level; R13.10 Dysphagia, unspecified; W00.0XXA Fall on same level due to ice and snow, initial encounter; Z80.0 Family history of malignant neoplasm of digestive organs; Z88.0 Allergy status to penicillin; Z90.49 Acquired absence of other specified parts of digestive tract; Z71.6 Tobacco abuse counseling
CPT/HCPCS: 36415; 70450; 71046; 72125; 76700; 80053; 80307; 81001; 82140; 82553; 83605; 83735; 84484; 85025; 85610; 85730; 93005; 96361; 96365; 96366; 96375; C9113; G0480; J1100; J1885; J2060; J7030; J7120; 99285-25